=== PATIENT | male | born 1990 | race Caucasian/White ===

== ENCOUNTER → 2020-07-09 11:38 | Outpatient (BNVA) | payer SELFPAY | PROVIDERS: Family Provider Nurse Practitioner Family; PCP Nurse Practitioner Family; Visit Provider Emergency Medicine | DX: J02.9 Acute pharyngitis, unspecified (principal) | CPT/HCPCS: 87071; 87880 ==

== ENCOUNTER 2021-05-19 13:31 | Outpatient (CLI) | payer OTHER, SELFPAY ==
--- NOTE | 2021-05-19 13:36 | MR_ITS ---
WS: [id number] MRI LUMBAR SPINE NONCONTRAST HISTORY: ACUTE RIGHT-SIDED BACK PAIN COMPARISON: 12/19/2018 TECHNIQUE: Sagittal and axial multisequence imaging is submitted. Thecal sac is small throughout the thoracic spine and lumbar spine suggesting congenital mild narrowi ng of the canal. Mild straightening of the normal lumbar lordosis. Similar to the prior study. No acute fracture. Mild disc desiccation at L4-5 without loss of height. Conus terminates normally at L1-2 disc level. L1-L2: Very mild ligamentum flavum hypertrophy. No significant stenosis. L2-L3: Normal. L3-L4: Very mild annular disc bulging and osteophytic ridging. Mild ligamentum flavum and facet arthr itis. Combination of factors is resulting in mild narrowing of the foramen with very mild deformity a nd encroachment upon the exiting LEFT L3 nerve root. Similar to the prior study. L4-L5: Diffuse annular disc bulging and osteophytic ridging. Central disc protrusion extends slightly cephalad from the disc level similar to the prior study. Very slight encroachment and narrowing of t he central canal. Mild ligamentum flavum hypertrophy and moderate facet arthritis. Disc and osteophyt e encroachment into the foramina. There is mild encroachment and deformity of the LEFT exiting L4 ner ve root. Mild bilateral foraminal stenosis but greatest on the LEFT. More advanced facet joint arthri tis on the RIGHT. There is increased T2 signal in the RIGHT L4 pedicle and lamina and increased T2 si gnal in the facet joint. There are small facet joint cysts and synovitis. L5-S1: Mild annular disc bulging and facet disease. Mild bilateral foraminal stenosis is similar to t he prior study. Very slight encroachment upon the L5 nerve roots bilaterally. Similar to the prior [facility]. Retroperitoneal structures as visualized are normal. MR/MR lumbar spine wo con* [id number] IMPRESSION: 1. Again noted is disc bulging with osteophytosis at the L4-5 level. Central d isc protrusion extends cephalad with facet joint arthritis. Findings resulting in mild central and foraminal stenosis. Disc encroachment upon the LEFT exiting L4 nerve root. 2. More advanced right-sided facet joint arthritis at L4-5 with marrow edema i n the pedicle and lamina and facet joint cysts and synovitis. Similar findings noted on the prior study. 3. Mild bilateral foraminal narrowing at L5-S1 with minimal disc encroachment upon the L5 nerve roots. Similar to the prior study. 4. Mild encroachment upon the exiting LEFT L3 nerve root with no change. 5. 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
== END 2021-05-19 13:32 | disposition home or self-care (01) ==
PROVIDERS: Visit Provider Nurse Practitioner Family
DX: M43.06 Spondylolysis, lumbar region (principal); M51.26 Other intervertebral disc displacement, lumbar region; M47.816 Spondylosis without myelopathy or radiculopathy, lumbar region
CPT/HCPCS: 72148

== ENCOUNTER 2021-10-22 06:00 | Outpatient (RCR) | payer BC, SELFPAY | END 2021-11-03 23:59 | disposition home or self-care (01) | LOC: MPT 06:00 | PROVIDERS: Visit Provider Pain Medicine Interventional Pain Medicine | DX: M54.31 Sciatica, right side (principal); M54.32 Sciatica, left side | CPT/HCPCS: 97110; 97162 ==

== ENCOUNTER 2021-11-04 06:00 | Outpatient (RCR) | payer BC, SELFPAY | END 2021-12-03 23:59 | disposition home or self-care (01) | LOC: MPT 06:00 | PROVIDERS: Referring Provider Nurse Practitioner Family; Visit Provider Nurse Practitioner Family | DX: M54.42 Lumbago with sciatica, left side (principal); M54.41 Lumbago with sciatica, right side; M46.1 Sacroiliitis, not elsewhere classified; M47.9 Spondylosis, unspecified; M54.10 Radiculopathy, site unspecified | CPT/HCPCS: 97110 ==

== ENCOUNTER 2021-12-04 06:00 | Outpatient (RCR) | payer BC, SELFPAY | END 2022-01-03 23:59 | disposition home or self-care (01) | LOC: MPT 06:00 | PROVIDERS: Referring Provider Nurse Practitioner Family; Visit Provider Nurse Practitioner Family | DX: M46.1 Sacroiliitis, not elsewhere classified (principal) | CPT/HCPCS: 97110 ==

== ENCOUNTER → 2022-07-02 11:55 | Outpatient (BNVA) | payer MEDICAID, SELFPAY | PROVIDERS: PCP Nurse Practitioner Family; Visit Provider Emergency Medicine | DX: R68.89 Other general symptoms and signs (principal); Z20.822 Contact with and (suspected) exposure to COVID-19 | CPT/HCPCS: 87400; 87426 ==

== ENCOUNTER → 2023-06-16 09:51 | Outpatient (BNVA) | payer MEDICAID, SELFPAY | PROVIDERS: PCP Nurse Practitioner Family; Visit Provider Emergency Medicine | DX: B34.9 Viral infection, unspecified (principal) | CPT/HCPCS: 87400; 87426 ==

== ENCOUNTER 2024-02-28 19:07 | Emergency (ER) | payer MEDICAID, SELFPAY ==
--- NOTE | 2024-02-28 19:14 | ECG_ITS ---
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 Measurements Intervals [place] Rate: 52 P: 37 ND: 165 QRS: 84 QRSD: 92 T: 50 QT: 362 QTc: 337 Interpretive Statements SINUS BRADYCARDIA WITH SINUS ARRHYTHMIA MINIMAL VOLTAGE CRITERIA FOR LVH, CONSIDER NORMAL VARIANT [MEETS CRITERIA IN ONE OF: R(aVL), S(V1), R(V5), R(V5/V6)+S(V1)] No previous ECG available for comparison Electronically Signed On 02-29-2024 23:08:47 CDT by Pasha Montero M.D. [id number]
[2024-02-28 19:22] VITALS: BP 127/77; PULSE 48; RESP 28; TEMP 36.5; O2SAT 100
--- NOTE | 2024-02-28 19:31 | XRR_ITS ---
PROCEDURE INFORMATION: Exam: XR Chest Exam date and time: 02/28/2024 7:34 PM Age: 33 years old Clinical indication: Cough and shortness of breath; Additional info: SOB TECHNIQUE: Imaging protocol: Radiologic exam of the chest. Views: 1 view. COMPARISON: CR XR chest 2V* [id number] 04/03/2017 12:14 PM FINDINGS: Lungs: Unremarkable. No consolidation or mass. Pleural spaces: Unremarkable. No pleural effusion. No pneumothorax. Heart/Mediastinum: Unremarkable. No cardiomegaly. Bones/joints: Unremarkable. XR/XR chest 1V portable [id number] IMPRESSION: No acute findings.
[2024-02-28 19:32] VITALS: BP 118/74; PULSE 66; RESP 26; O2SAT 95
--- NOTE | 2024-02-28 19:33 | ED_ITS ---
HPI - SOB/Dyspnea 2 General: Chief Complaint: Shortness of Breath/Dyspnea Stated Complaint: SOB\Painnin Upper Chest and Back Time Seen by Provider: 02/28/24 19:21 Source: patient Mode of arrival: ambulatory Limitations: no limitations History of Present Illness: HPI Narrative: 33-year-old male states that since he has had some congestion cough states been short of breath with sharp chest pains on the left. States the pain is much worse with inspiration and cough. He denies any fever he does have a history of smoking. Denies any vomiting or diarrhea Associated symptoms: Reports chest pain; Deny abdominal pain, fever(s), nausea or vomiting Related Data Previous Rx's Medication Instructions Recorded tizanidine 4 mg capsule 4 mg PO Q8H PRN muscle spasticity 01/28/23 #21 caps fexofenadine 60 mg-pseudoephedrine 1 tab PO Q12H PRN sinus symptoms 06/16/23 ER 120 mg tablet,ext.release,12 hr 14 days #30 tabs (Kassie-D 12 Hour) fluticasone propionate 50 1 spray intranasal BID PRN nasal 06/16/23 mcg/actuation nasal congestion #9.9 mL spray,suspension (Flonase Allergy Relief) amoxicillin 875 mg-potassium 1 tab PO BID 10 days #20 tabs 07/25/23 clavulanate 125 mg tablet albuterol sulfate 90 mcg/actuation 2 inh inhalation Q6H PRN shortness 02/28/24 aerosol inhaler of breath or wheezing #8 grams naproxen 500 mg tablet (Naprosyn) 500 mg PO BID PRN pain #20 tabs 02/28/24 Allergies Allergy/AdvReac Type Severity Reaction Status Date / Time Sulfa (Sulfonamide Allergy unknown Verified 02/28/24 19:27 Antibiotics) Review of Systems 2 Const: Denies: fever(s), chills, body aches or change in appetite ENMT: Denies: throat pain or dental pain Card: Reports: chest pain Resp: Reports: dyspnea and non-productive cough GI: Denies: abdominal pain, nausea, vomiting or diarrhea Musc: Denies: neck pain or back pain Skin/Breast: Denies: rash Neuro: Denies: headache(s) PFSH ED 2 PFSH: Social History Smoking and tobacco/nicotine status: current every day tobacco/nicotine user cigarettes Packs smoked per day: 1 Alcohol intake: never Substance/Drug Use: never Physical Exam 2 Const: COMMON NORMALS: no acute distress, patient oriented x3 and healthy appearing HENMT: COMMON NORMALS: normocephalic and atraumatic HEAD & SCALP: n ormocephalic and atraumatic Eye: COMMON NORMALS: Equal, round and reactive pupils present and EOMs intact bilaterally PUPIL: Yes Equal, round and reactive pupils present Neck/C-Spine: COMMON NORMALS: full ROM and supple Chest: COMMONS NORMALS: normal inspection of the chest and normal palpation of entire chest wall Resp: COMMON NORMALS: normal respiratory effort, No retractions, No use of accessory muscles and clear to auscultation bilaterally AUSCULTATION: clear to auscultation bilaterally Cardio: COMMON NORMALS: regular rate, regular rhythm and No murmurs present (Cardio) RATE: regular rate RHYTHM: regular rhythm GI: COMMON NORMALS: Normal to inspection, nondistended, normoactive bowel sounds present, Soft to palpation, non-tender and no masses PALPATION: Yes Soft to palpation Extremity: COMMON NORMALS: normal to inspection and full ROM Neuro: COMMON NORMALS: patient oriented x3, moves all extremities and no focal motor deficits Psych: COMMON NORMALS: mental status grossly normal, Normal thought process present and cooperative THOUGHT PROCESS: Normal thought process present Skin: COMMON NORMALS: no rashes or lesions noted and no wounds GENERAL SKIN EXAM: no rashes or lesions noted Course 2 Vital Signs: Vital signs: Vital Signs Temperature 97.7 F 02/28/24 19:22 Pulse Rate 67 02/28/24 20:27 Respiratory Rate 20 H 02/28/24 20:27 Blood Pressure 112/76 02/28/24 20:27 Pulse Oximetry 98 02/28/24 20:27 Oxygen Delivery Me thod Room Air 02/28/24 20:27 MDM - SOB/Dyspnea Medical Decision Making Patient presents here with likely upper respiratory infection has had chest pains atypical in nature is likely pleuritic in nature no signs of ACS D-dimer is negative no signs of pulmonary embolism patient stable for discharge follow- up PCP return if worsening. Medical Records I reviewed the patient's medical records. Lab Data I reviewed the patient's lab results. 02/28/24 19:43 02/28/24 19:43 Labs/Radiology: Radiology Impressions Chest X-Ray 02/28/24 19:31 IMPRESSION: No acute findings. Laboratory Results WBC 6.54 10^3/uL (3.29-11.43) 02/28/24 19:43 RBC 4.39 10^6/uL (3.85-5.65) 02/28/24 19:43 Hgb 14.00 g/dL (11.27-16.99) 02/28/24 19:43 Hct 41.2 % (37-53) 02/28/24 19:43 MCV 93.8 fl (82-101) 02/28/24 19:43 MCH 31.9 pg (27-33) 02/28/24 19:43 MCHC 34.0 g/dL (30-55) 02/28/24 19:43 RDW 12.0 % (12.1-15.1) L 02/28/24 19:43 Plt Count 222 10^3/cmm (157-399) 02/28/24 19:43 MPV 10.1 fL (7.4-10.4) 02/28/24 19:43 Neut % (Auto) 46.5 % 02/28/24 19:43 Lymph % (Auto) 39.1 % 02/28/24 19:43 Leake % (Auto) 6.4 % 02/28/24 19:43 Eos % (Auto) 7.0 % 02/28/24 19:43 Baso % (Auto) 0.8 % 02/28/24 19:43 Neut # (Auto) 3.04 10^3/uL (1.8-7.7) 02/28/24 19:43 Lymph # (Auto) 2.6 10^3/uL (0.8-4.8) 02/28/24 19:43 Leake # (Auto) 0.4 10^3/uL (0.2-0.9) 02/28/24 19:43 Eos # (Auto) 0.5 10^3/uL (0.0-0.8) 02/28/24 19:43 Baso # (Auto) 0.1 10^3/uL (0.0-0.1) 02/28/24 19:43 Nucleated RBC % (auto) 0 % 02/28/24 19:43 Nucleated RBCs # 0.0 /100WBC 02/28/24 19:43 D-Dimer 0.31 ug/mLFEU (0-0.59) 02/28/24 19:43 Sodium 140 mmol/L (136-145) 02/28/24 19:43 Potassium 4.2 mmol/L (3.5-5.1) 02/28/24 19:43 Chloride 106 mmol/L (98-107) 02/28/24 19:43 Carbon Dioxide 24 mmol/L (22-29) 02/28/24 19:43 Anion Gap 14.2 (5-19) 02/28/24 19:43 BUN 11 mg/dL (6-20) 02/28/24 19:43 Creatinine 0.7 mg/dL (0.7-1.2) 02/28/24 19:43 GFR Calculation 130.7 mL/min (90-130) H 02/28/24 19:43 Glucose 78 mg/dL (65-115) 02/28/24 19:43 Calculated Osmolality 288 mOsm/kg (285-295) 02/28/24 19:43 Calcium 8.6 mg/dL (8.5-10.5) 02/28/24 19:43 Total Bilirubin 0.2 mg/dL (0.15-1.2) 02/28/24 19:43 AST 19 U/L (0-40) 02/28/24 19:43 ALT 22 U/L (0-41) 02/28/24 19:43 Alkaline Phosphatase 78 U/L (40-130) 02/28/24 19:43 Total Protein 6.4 g/dL (6.6-8.7) L 02/28/24 19:43 Albumin 4.2 g/dL (3.5-5.2) 02/28/24 19:43 Globulin 2.2 g/dL (1.3-4.6) 02/28/24 19:43 Coronavirus (PCR) Negative (Negative) 02/28/24 19:35 Influenza A (PCR) Negative (Negative) 02/28/24 19:35 Influenza Type B (PCR) Negative (Negative) 02/28/24 19:35 RSV (PCR) Negative (Negative) 02/28/24 19:35 All radiology interpretation(s) finalized by discharge EKG Data EKG 1: I personally reviewed and interpreted this EKG as follows: EKG Interpretation Date: 02/28/24 EKG interpretation time: 19:14 Interpretation: sinus mehreen hr [address] or t t wave abnormalities qrs 341 Discharge Plan Discharge Patient Disposition: Home Clinical Impression: Upper respiratory infection, Chest pain Condition: Stable Prescriptions: New albuterol sulfate 90 mcg/actuation HFA aerosol inhaler 2 inh INHALATION Q6H PRN (Reason: shortness of breath or wheezing) Qty: 8 0RF Naprosyn 500 mg tablet 500 mg PO BID PRN (Reason: pain) Qty: 20 0RF No Action amoxicillin-pot clavulanate 875-125 mg tablet 1 tab PO BID 10 Days Qty: 20 0RF tizanidine 4 mg capsule 4 mg PO Q8H PRN (Reason: muscle spasticity) Qty: 21 0RF fexofenadine-pseudoephedrine [Kassie-D 12 Hour] 60-120 mg tablet extended release 12 hr 1 tab PO Q12H PRN (Reason: sinus symptoms) 14 Days Qty: 30 0RF fluticasone propionate [Flonase Allergy Relief] 50 mcg/actuation spray,suspension 1 spray intranasal BID PRN (Reason: nasal congestion) Qty: 9.9 0RF Rx Instructions: administer into each nostril Discharge Orders: Discharge ED (Routine); Ordered 02/28/24 Ordered By: Dao Charles Referrals: Kamala Stafford FNP [Primary Care Provider] - Discharge Diet: Advance as tolerated Discharge Activity: Resume usual activity Patient Instructions: Upper Respiratory Infection (ED) Coding Level of Care Code ED End [employer] for Evie Mccoy
[2024-02-28 19:52] LABS: Basophils # 0.1 10^3/uL (0.0-0.1); Basophils % 0.8 %; Eosinophils # 0.5 10^3/uL (0.0-0.8); Hematocrit 41.2 % (37-53); Lymphocytes # 2.6 10^3/uL (0.8-4.8); Lymphocytes % 39.1 %; Mean Corpuscular Hemoglobin 31.9 pg (27-33); Mean Corpuscular Volume 93.8 fl (82-101); Mean Platelet Volume 10.1 fL (7.4-10.4); Monocytes # 0.4 10^3/uL (0.2-0.9); Monocytes % 6.4 %; Neutrophils # 3.04 10^3/uL (1.8-7.7); Neutrophils % 46.5 %; Nucleated Red Blood Cells % 0 %; Platelet Count 222 10^3/cmm (157-399); Red Blood Count 4.39 10^6/uL (3.85-5.65); White Blood Count 6.54 10^3/uL (3.29-11.43)
[2024-02-28] MEDS: ketorolac 30 mg/mL INJ IVP (19:54)
[2024-02-28] MEDS: dexamethasone 10 mg/mL INJ IVP (19:59)
[2024-02-28 20:05] VITALS: PULSE 60; RESP 16; O2SAT 96
[2024-02-28] MEDS: albuterol 8 gm MDI 2 PUFF INHALATION (20:05)
[2024-02-28 20:08] LABS: Alanine Aminotransferase 22 U/L (0-41); Albumin Level 4.2 g/dL (3.5-5.2); Alkaline Phosphatase 78 U/L (40-130); Anion Gap 14.2 (5-19); Aspartate Amino Transferase 19 U/L (0-40); Blood Urea Nitrogen 11 mg/dL (6-20); Calcium 8.6 mg/dL (8.5-10.5); Carbon Dioxide 24 mmol/L (22-29); Chloride 106 mmol/L (98-107); Creatinine Clr Calc Pharmacy 131.4763; Globulin 2.2 g/dL (1.3-4.6); Glomerular Filtration Rate 130.7 mL/min (90-130); Glucose 78 mg/dL (65-115); Osmolality Calculated 288 mOsm/kg (285-295); Potassium 4.2 mmol/L (3.5-5.1); Sodium 140 mmol/L (136-145); Total Bilirubin 0.2 mg/dL (0.15-1.2); Total Protein 6.4 g/dL (6.6-8.7)
[2024-02-28 20:17] LABS: Covid PCR NEGATIVE (Negative); Influenza A NEGATIVE (Negative); Influenza B NEGATIVE (Negative); Respiratory Syncytial Virus Ce NEGATIVE (Negative)
[2024-02-28 20:23] LABS: D Dimer 0.31 ug/mLFEU (0-0.59)
[2024-02-28 20:27] VITALS: BP 112/76; PULSE 67; RESP 20; O2SAT 98
[2024-02-28 20:51] VITALS: BP 112/76; PULSE 63; O2SAT 96
== END 2024-02-28 20:52 | disposition home or self-care (01) ==
PROVIDERS: Emergency Provider Emergency Medicine; PCP Nurse Practitioner Family
DX: J06.9 Acute upper respiratory infection, unspecified (principal); R07.9 Chest pain, unspecified; R00.1 Bradycardia, unspecified; Z11.52 Encounter for screening for COVID-19; F17.210 Nicotine dependence, cigarettes, uncomplicated
CPT/HCPCS: 0241U; 71045; 80053; 85025; 85378; 93005; 94640; 96374; 96375; 99285; J1100; J1885; J3535

== ENCOUNTER → 2024-05-11 11:22 | Outpatient (BNVA) | payer MEDICAID, SELFPAY | PROVIDERS: PCP Nurse Practitioner Family; Visit Provider Nurse Practitioner | DX: M19.012 Primary osteoarthritis, left shoulder (principal) | CPT/HCPCS: 73030 ==

== ENCOUNTER 2024-05-17 11:38 | Emergency (ER) | payer MEDICAID, SELFPAY ==
[2024-05-17 11:52] VITALS: BP 129/73; PULSE 91; TEMP 36.7; O2SAT 99; BMI 26.5
[2024-05-17 13:08] VITALS: BP 123/81; PULSE 77; RESP 16; O2SAT 98
--- NOTE | 2024-05-17 13:13 | W.ED.EXTPRO ---
HPI - Extremity Problem General: Chief complaint: Extremity Injury, Upper Stated complaint: shoulder injury Time Seen by Provider: 05/17/24 13:00 Source: patient Mode of arrival: ambulatory Limitations: no limitations History of Present Illness: Patient is a 34-year-old male who presents to ED today with a complaint of left shoulder pain. Patient states he initially injured the shoulder several weeks ago and then reinjured it again a few days ago. He states pain is mainly located to his right posterior shoulder. He feels like pain does travel down his left arm. He denies numbness, tingling, loss of sensation. He has not noticed any color or temperature changes to the arm. Pain to his shoulder is worse with movement. He was seen at a walk-in clinic on 05/11 and had x-rays of the shoulder performed and placed on Celebrex. He does feel like the Celebrex has helped with range of motion but is not really helping with pain. He was set up with a follow-up orthopedic appointment that is currently scheduled for 06/08. Radiology read of his x-ray on 05/11 is as follows: XR/XR shoulder LT min 2V* [id number] IMPRESSION: Minimal to mild osteoarthritis of the glenohumeral joint. Mild rotator cuff tendon arthropathy MD Complaint: joint pain Onset (ago): week(s) Pain Consistency: constant Location: left and upper extremity (shoulder) Radiation: distal Relieving factors: nothing Exacerbating factors: range of motion Associated symptoms: Reports no associated symptoms; Deny chest pain or fever(s) Related Data Previous Rx's Medication Instructions Recorded fexofenadine 60 mg-pseudoephedrine 1 tab PO Q12H PRN sinus symptoms 06/16/23 ER 120 mg tablet,ext.release,12 hr 14 days #30 tabs (Kassie-D 12 Hour) fluticasone propionate 50 1 spray intranasal BID PRN nasal 06/16/23 mcg/actuation nasal congestion #9.9 mL spray,suspension (Flonase Allergy Relief) albuterol sulfate 90 mcg/actuation 2 inh inhalation Q6H PRN shortness 02/28/24 aerosol inhaler of breath or wheezing #8 grams tizanidine 4 mg capsule 4 mg PO Q8H PRN muscle spasticity 04/05/24 #60 caps celecoxib 100 mg capsule (Celebrex) 100 mg PO BID #60 caps 05/11/24 methylprednisolone 4 mg tablets in See Rx Instructions PO .COMPLEX 05/17/24 a dose pack (Medrol (John)) #21 ea tizanidine 4 mg capsule (Zanaflex) 4 mg PO Q8H PRN muscle spasticity 05/17/24 #20 caps Allergies Allergy/AdvReac Type Severity Reaction Status Date / Time Sulfa (Sulfonamide Allergy unknown Verified 05/17/24 11:58 Antibiotics) Review of Systems Const: Denies: fever(s) Card: Denies: chest pain Resp: Denies: dyspnea Musc: Reports: joint pain (L shoulder) and limited range of motion; Denies: neck pain, back pain, extremity swelling, joint swelling, joint redness or joint warmth Neuro: Denies: numbness in extremities or sensory changes PFSH ED PFSH: Social History Smoking and tobacco/nicotine status: current every day tobacco/nicotine user cigarettes Packs smoked per day: 1 Alcohol intake: never Substance/Drug Use: never Physical Exam Const: COMMON NORMALS: no acute distress, average body habitus, no limitations, healthy appearing, alert and well nourished GENERAL APPEARANCE: cooperative HENMT: COMMON NORMALS: normocephalic and atraumatic HEAD & SCALP: normal to inspection, normocephalic and atraumatic Neck/C-Spine: COMMON NORMALS: full ROM GENERAL: Yes normal visual inspection CERVICAL SPINE: No Cervical spine tenderness Resp: COMMON NORMALS: normal respiratory effort and clear to auscultation bilaterally AUSCULTATION: clear to auscultation bilaterally Back/Pelvis: COMMON NORMALS: thoracic and lumbar spine normal to inspection and no thoracic nor lumbar tenderness Extremity: COMMON NORMALS: capillary refill normal, no joint enlargement and no clubbing, cyanosis or edema GENERAL: Yes normal exam except as noted LEFT UPPER EXTREMITY: Yes shoulder joint Left shoulder joint: Yes inspection (TTP posterior L shoulder), Yes ROM (limited due to pain) and Yes neurovascular exam (normal) OTHER: normal sensation/pulses/cap refill to L UE; no edema noted; no erythema/warmth Neuro: COMMON NORMALS: moves all extremities, no focal motor deficits and no sensory deficits noted SENSORIUM/ORIENTATION: Yes alert Skin: COMMON NORMALS: no rashes or lesions noted GENERAL SKIN EXAM: no rashes or lesions noted TRAUMA: no lacerations or abrasions Course Vital Signs: Vital signs: Vital Signs Temperature 98.1 F 05/17/24 11:52 Pulse Rate 77 05/17/24 13:08 Respiratory Rate 16 05/17/24 13:08 Blood Pressure 123/81 05/17/24 13:08 Pulse Oximetry 98 05/17/24 13:08 Oxygen Delivery Me thod Room Air 05/17/24 13:08 MDM - Extremity (Nontraumatic) Medical Decision Making Will have him continue the Celebrex. Will place him on muscle relaxers as well as steroids to see if this helps any further with his discomfort. He is already scheduled with orthopedics on 06/08. There is no indication for emergent imaging on today's visit. He may require MRI imaging based on orthopedic assessment. No radiology studies performed this visit Discharge Plan Discharge Patient Disposition: Home Clinical Impression: Arthropathy of right shoulder Condition: Stable Prescriptions: New methylprednisolone [Medrol (John)] 4 mg tablets,dose pack See Rx Instructions .ROUTE .COMPLEX Qty: 21 0RF Rx Instructions: orally per package directions tizanidine [Zanaflex] 4 mg capsule 4 mg PO Q8H PRN (Reason: muscle spasticity) Qty: 20 0RF No Action tizanidine 4 mg capsule 4 mg PO Q8H PRN (Reason: muscle spasticity) Qty: 60 0RF celecoxib [Celebrex] 100 mg capsule 100 mg PO BID Qty: 60 0RF fexofenadine-pseudoephedrine [Kassie-D 12 Hour] 60-120 mg tablet extended release 12 hr 1 tab PO Q12H PRN (Reason: sinus symptoms) 14 Days Qty: 30 0RF fluticasone propionate [Flonase Allergy Relief] 50 mcg/actuation spray,suspension 1 spray intranasal BID PRN (Reason: nasal congestion) Qty: 9.9 0RF Rx Instructions: administer into each nostril albuterol sulfate 90 mcg/actuation HFA aerosol inhaler 2 inh INHALATION Q6H PRN (Reason: shortness of breath or wheezing) Qty: 8 0RF Discharge Orders: Discharge ED (Routine); Ordered 05/17/24 Ordered By: Amrita Ruth Referrals: Kamala Stafford FNP [Primary Care Provider] - Activity Restrictions/Additional Instructions: You are scheduled to see our [facility] orthopedic clinic on 06/08 at 9:30am for further evaluation of your shoulder pain. Coding Level of Care Code ED [employer] for Evie Mccoy
[2024-05-17] MEDS: ketorolac 60 mg/2 mL INJ IM (13:44)
[2024-05-17] MEDS: dexamethasone 10 mg/mL INJ 8 MG IM (13:44)
[2024-05-17 14:13] VITALS: BP 130/79; PULSE 75; O2SAT 98
== END 2024-05-17 14:14 | disposition home or self-care (01) ==
PROVIDERS: Emergency Provider Physician Assistant; PCP Nurse Practitioner Family
DX: M12.811 Other specific arthropathies, not elsewhere classified, right shoulder (principal); F17.210 Nicotine dependence, cigarettes, uncomplicated
CPT/HCPCS: 96372; 99284; J1100; J1885

== ENCOUNTER → 2024-06-08 09:21 | Outpatient (BNVA) | payer MEDICAID, SELFPAY | PROVIDERS: PCP Nurse Practitioner Family; Visit Provider Physician Assistant | DX: M75.42 Impingement syndrome of left shoulder (principal) | CPT/HCPCS: 73030 ==

== ENCOUNTER 2024-07-30 15:46 | Outpatient (CLI) | payer MEDICAID, SELFPAY ==
--- NOTE | 2024-07-30 15:50 | US_ITS ---
WS: [id number] SCROTAL ULTRASOUND EXAMINATION CLINICAL INFORMATION: TESTICULAR PAIN COMPARISON: None. FINDINGS: TESTES Normal in size and echotexture, without focal lesion. Color Doppler: Normal color Doppler flow pattern. Right testes size: 4.0 cm x 2.5 cm x 1.8 cm. Left testes size: 3.8 cm x 2.3 cm x 2.0 cm. EPIDIDYMIDES Normal in size and echotexture, without focal lesion. Color Doppler: Normal color Doppler flow pattern. Right epididymis size: 0.6 cm x 0.7 cm x 1.3 cm. Left epididymis size: 0.7 cm x 0.7 cm x 1.3 cm. HYDROCELE Small RIGHT VARICOCELE None. OTHER FINDINGS None. US/US scrotum [id number] IMPRESSION: 1. Small RIGHT hydrocele. 2. No other suspicious findings.
== END 2024-07-30 15:47 | disposition home or self-care (01) ==
LOC: RAD 15:47
PROVIDERS: PCP Nurse Practitioner Family; Visit Provider Nurse Practitioner Family
DX: N50.819 Testicular pain, unspecified (principal); N43.3 Hydrocele, unspecified
CPT/HCPCS: 76870

== ENCOUNTER → 2024-09-19 14:06 | Outpatient (BNVA) | payer MEDICAID, SELFPAY | PROVIDERS: PCP Nurse Practitioner Family; Visit Provider Nurse Practitioner | DX: R50.9 Fever, unspecified (principal) | CPT/HCPCS: 87400 ==

== ENCOUNTER → 2025-02-20 11:04 | Outpatient (BNVA) | payer MEDICAID, SELFPAY | PROVIDERS: PCP Nurse Practitioner Family; Visit Provider Nurse Practitioner | DX: M25.531 Pain in right wrist (principal) | CPT/HCPCS: 73110 ==